=== PATIENT | female | born 1990 | race African-American/Black ===

== ENCOUNTER 2017-07-14 00:23 | Emergency (ER) | payer SELFPAY ==
[2017-07-14] MEDS ORDERED: METOCLOPRAMIDE HCL INJ/PF 10 MG/2 ML SDV IV ONE (01:44)
[2017-07-14] MEDS ORDERED: DIPHENHYDRAMINE HCL 50 MG/ML VIAL IV ONE (01:44)
[2017-07-14] MEDS ORDERED: KETOROLAC TROMETHAMINE INJ/PF 30 MG/1 ML SDV IV ONE (01:44)
--- NOTE | 2017-07-14 01:48 | ER Document Report ---
ED General - General Chief Complaint: Headache Stated Complaint: HEADACHE Time Seen by Provider: 07/14/17 01:40 Notes: Patient is a 27-year-old female with a history of migraines, fibromyalgia, and MS. She presents because she has had 3 days of headache and body pain. She says she is sore all over. She is on several medications. She says she has taken her medications was not helped. I asked her if she is tried any over-the- counter medication such as Motrin and Tylenol. She says she has not. She denies any weakness into her extremities. No ocular symptoms. No fevers. No infections. No recent trauma. No other complaints at this time. TRAVEL OUTSIDE OF THE [place] IN LAST 30 DAYS: No Past Medical History - Social History Smoking Status: Never Smoker Frequency of alcohol use: Occasional Drug Abuse: None Family History: Reviewed & Not Pertinent Review of Systems - Review of Systems Notes: My Normal Review Basic REVIEW OF SYSTEMS: CONSTITUTIONAL : Denies fever, chills, or sweats. Denies recent illness. EENT: Denies eye, ear, throat, or mouth pain or symptoms. Denies nasal or sinus congestion. CARDIOVASCULAR: Denies chest pain. RESPIRATORY: Denies cough, cold, or chest congestion. Denies shortness of breath, difficulty breathing, or wheezing. GASTROINTESTINAL: Denies abdominal pain. Denies nausea, vomiting, or diarrhea. Denies constipation. Last BM: MUSCULOSKELETAL: Muscle aches SKIN: Denies rash or skin lesions. NEUROLOGICAL: Denies altered mental status or loss of consciousness. Has a headache. Denies weakness or paralysis or loss of use of either side. Denies problems with gait or speech. Denies sensory or motor loss. ALL OTHER SYSTEMS REVIEWED AND NEGATIVE. Physical Exam - Vital signs Vitals: Temp Pulse Resp BP Pulse Ox 98.9 F 72 18 139/90 H 100 07/14/17 00:23 07/14/17 00:23 07/14/17 00:23 07/14/17 00:23 07/14/17 00:23 - Notes Notes: General Appearance: Well nourished, alert, cooperative, no acute distress, mild obvious discomfort. Well-appearing. Vitals: reviewed, See vital signs table. Head: no swelling or tenderness to the head Eyes: PERRL, EOMI, Conjuctiva clear Mouth: No decreasd moisture Neck: Supple, some pain over the trapezius muscles and cervical paraspinal musculature. Lungs: No wheezing, No rales, No rhonci, No accessory muscle use, good air exchange bilaterally. Heart: Normal rate, Regular rythm, No murmur, no rub Extremities: strength 5/5 in all extremities, good pulses in all extremities, she is able to lift all 4 extremities against resistance without any weakness. She has good strength in all 4 extremities. She says she does have some soreness with movement of her extremities. No focal swelling or redness to the joints. Skin: warm, dry, appropriate color, no rash Neuro: speech clear, oriented x 3, normal affect, responds appropriately to questions. Nerves II through XII are intact. Distal sensation intact. Patient was all extremities without difficulty. Course - Re-evaluation Re-evalutation: 07/14/17 03:39 Patient still is a slight headache but says she is feeling improved. Her muscle aches are improving also. Says that she wants to go home. I do not suspect subarachnoid hemorrhage and that her headache is similar to her previous headaches and her headache was gradual worsening over a period of 3 days. She has no focal neurologic deficits or weakness. She has no ocular motion deficits. Nothing suggests that she has exacerbation or worsening of her MS. Feel she is safe to be discharged home. I encouraged her return to ER immediately if she has worsening pain, severe headache, vomiting, fevers, or she feels unwell. Patient agrees with plan will be discharged home. Dictation of this chart was performed using voice recognition software; therefore, there may be some unintended grammatical errors. - Vital Signs Vital signs: Temp Pulse Resp BP Pulse Ox 98.4 F 71 18 134/72 H 100 07/14/17 03:11 07/14/17 03:11 07/14/17 00:23 07/14/17 03:11 07/14/17 03:11 Discharge - Discharge Clinical Impression: Fibromyalgia Headache Qualifiers: Headache type: unspecified Headache chronicity pattern: unspecified pattern Intractability: not intractable Qualified Code(s): R51 - Headache Condition: Good Disposition: HOME, SELF-CARE Additional Instructions: If you continue have headache or have recurrent headaches not responding to your home medications you can take the prescribed Reglan in conjunction with Benadryl. Benadryl will make you sleepy so please do not drive after taking this. Please consider taking ibuprofen. Take this with some food so it does not irritate your stomach. This will help with your muscle aches and pains are caused by fibromyalgia. Please return to ER if you have vomiting, fevers, intractable headache, if you feel that your worsening. Please follow-up with your doctor in 2-3 days for reevaluation. Prescriptions: Metoclopramide HCl [Reglan 10 mg Tablet] 1 tab PO ASDIR PRN #25 tablet PRN Reason: Forms: Return to Work
[2017-07-14 03:15] VITALS: BP 134/72
== END 2017-07-14 03:30 | disposition home or self-care (01) ==
LOC: ER 00:23
DX: M79.7 Fibromyalgia (principal); R51 Headache; G35 Multiple sclerosis
CPT/HCPCS: 99284; 96374; 96375; J1200; J1885; J2765

== ENCOUNTER 2017-09-09 08:31 | Day surgery (SDC) | payer MEDICAID ==
[2017-09-09 09:28] LABS: INTERNATIONAL RATION (INR) 0.95; PROTHROMBIN TIME 13.4 SEC (11.4-15.4)
[2017-09-09 09:29] LABS: PARTIAL THROMBOPLASTIN TIME 33.4 SEC (23.5-35.8)
--- NOTE | 2017-09-09 11:50 | RADIOLOGY REPORT (SQ) ---
EXAM DESCRIPTION: LUMBAR PUNCTURE; FLUORO/NEEDLE PLACEMENT/SPINE COMPLETED DATE/TIME: 09/09/2017 11:38 am REASON FOR STUDY: MS G35 MULTIPLE SCLEROSIS COMPARISON: None. FLUOROSCOPY TIME: 0.4 minutes 1 images saved to PACS. TECHNIQUE: Fluoroscopic guided lumbar puncture with opening and closing pressures. LIMITATIONS: None. PROCEDURE: After written consent and assessment were obtained, the patient was brought into the fluo roscopy room and placed prone on the table. The patient's lower back was prepped in a sterile fashio n and an entry site was selected under live fluoroscopic guidance. The entry site was anesthetized wi th 1% lidocaine. A 22 gauge needle was advanced through the skin and into the thecal sac at the level of L2-L3. An opening pressure of 25 water units was obtained. After approximately 14.5ml of CSF was drained, a closing pressure of 25 water units was obtained. The needle was removed and a sterile ban dage was placed of the site. Specimens were sent to the lab for testing. A fluoroscopic spot image wa s saved to PACS confirming level access. FINDINGS: Clear CSF IMPRESSION: Lumbar puncture under fluoroscopy. No immediate complication. COMMENT: Patient medication list reviewed:Yes- Quality ID# [id number]:Eligible professional attests to docu menting in the medical record they obtained, updated, or reviewed the patient's current medications.. Quality ID [id number]: Final reports for procedures using fluoroscopy that document radiation exposure arsh mayte, or exposure time and number of fluorographic images (if radiation exposure indices are not avail able) TECHNICAL DOCUMENTATION: JOB ID: [id number] [employer]- All Rights Reserved
[2017-09-09 12:06] LABS: APPEARANCE ALL TUBES CLEAR; COLOR ALL TUBES COLORLESS; CSF TOTAL VOLUME 14.5 CC; CSF TUBE NUMBER 3; RED BLOOD CELL,CSF 0 /uL (0-10); VOLUME TUBE 2 3.5 CC; WHITE BLOOD CELL,CSF 1 /uL (0-5)
[2017-09-09 12:23] LABS: GLUCOSE,CSF 51 mg/dL (40-70); PROTEIN,CSF 24 mg/dL (12-60)
[2017-09-09 13:47] VITALS: BP 122/77
[2017-09-10 16:39] LABS: ALBUMIN SERUM 3.9 g/dL (3.5-5.5); CSF IGG INDEX 0.5 (0.0-0.7); IGG SYNTHESIS RATE CSF -6.1 mg/day (-9.9 TO +3.3); IMMUNOGLOBULIN G CSF 1.4 mg/dL (0.0-8.6); IMMUNOGLOBULIN G SERUM 1629 mg/dL (700-1600)
[2017-09-11 18:07] LABS: ALBUMIN CSF 7 mg/dL (11-48); CSF/SERUM ALBUMIN INDEX 2 (0-8)
== END 2017-09-09 13:40 | disposition home or self-care (01) ==
LOC: RAD 08:31
PROVIDERS: ATTEND Specialist
PROC: 009U3ZX Drainage of Spinal Canal, Percutaneous Approach, Diagnostic (ICD-10-PCS; principal; 2017-09-09)
DX: G35 Multiple sclerosis (principal); Z79.899 Other long term (current) drug therapy; G47.30 Sleep apnea, unspecified
CPT/HCPCS: 36415; 62270; 77003; 82784; 82945; 83916; 84157; 85610; 85730; 87070; 87205; 89050